=== PATIENT | male | born 1960 | race Caucasian/White ===

== ENCOUNTER 2023-07-25 07:04 | Outpatient (CLI) | payer MEDICARE, SELFPAY ==
--- NOTE | 2023-07-25 08:31 | W.ANESCHARGE ---
Anesthesia Charges Start Date/Time Anesthesia Start Date: 07/25/23 Anesthesia Start Time: 08:02 Stop Date/Time Anesthesia Stop Date: 07/25/23 Anesthesia Stop Time: 08:32
--- NOTE | 2023-07-25 09:13 | W.ANESCHARGE ---
Anesthesia Charges Start Date/Time Anesthesia Start Date: 07/25/23 Anesthesia Start Time: 08:02 Stop Date/Time Anesthesia Stop Date: 07/25/23 Anesthesia Stop Time: 08:32
== END 2023-07-25 07:05 | disposition home or self-care (01) ==
LOC: OP CLINIC 07:05
PROVIDERS: PCP Family Medicine; Visit Provider Internal Medicine Gastroenterology
DX: Z12.11 Encounter for screening for malignant neoplasm of colon (principal); K63.5 Polyp of colon; Z86.010 Personal history of colon polyps; Z98.0 Intestinal bypass and anastomosis status
CPT/HCPCS: 00811; 45385; 88305; J2704